=== PATIENT | male | born 1955 | race Caucasian/White ===

== ENCOUNTER 2020-05-24 05:10 | Inpatient (IN) ==
--- NOTE | 2020-05-11 09:47 | PAT Medication Instructions ---
Medication Instructions Date of Service May 11, 2020 Home Medications atorvastatin 20 mg PO QAM levothyroxine [L-Thyroxine] 50 mcg PO QAM lisinopril-hydrochlorothiazide 1 tab PO QAM meloxicam 15 mg PO QAM multivitamin 1 tab PO QPM rivaroxaban [Xarelto] 20 mg PO QAM magnesium 250 mg PO BID ASK your surgeon for instructions meloxicam 15 mg PO QAM ASK your prescriber and surgeon rivaroxaban [Xarelto] 20 mg PO QAM (in order for spinal anesthesia, rivaroxaban (Xarelto) needs to be stopped 72 hours/3 days before surgery. Please check if okay with doctor that prescribes this to you) DO NOT take the morning of surgery lisinopril-hydrochlorothiazide 1 tab PO QAM magnesium 250 mg PO BID Take morning of surgery With a small sip of water, OTHERWISE NOTHING TO EAT OR DRINK AFTER MIDNIGHT: atorvastatin 20 mg PO QAM levothyroxine [L-Thyroxine] 50 mcg PO QAM Take evening before surgery multivitamin 1 tab PO QPM magnesium 250 mg PO BID Other Notes If you have any questions please call us at [phone] or [phone] or [phone] or [phone]
--- NOTE | 2020-05-11 09:53 | PAT Medication Instructions ---
Medication Instructions Date of Service May 11, 2020 Home Medications atorvastatin 20 mg PO QAM levothyroxine [L-Thyroxine] 50 mcg PO QAM lisinopril-hydrochlorothiazide 1 tab PO QAM meloxicam 15 mg PO QAM multivitamin 1 tab PO QPM rivaroxaban [Xarelto] 20 mg PO QAM magnesium 250 mg PO BID ASK your surgeon for instructions meloxicam 15 mg PO QAM DO NOT take the morning of surgery lisinopril-hydrochlorothiazide 1 tab PO QAM magnesium 250 mg PO BID Take morning of surgery With a small sip of water, OTHERWISE NOTHING TO EAT OR DRINK AFTER MIDNIGHT: atorvastatin 20 mg PO QAM levothyroxine [L-Thyroxine] 50 mcg PO QAM Take evening before surgery multivitamin 1 tab PO QPM magnesium 250 mg PO BID Other Notes If you have any questions please call us at [phone] or [phone] or [phone] or [phone]
--- NOTE | 2020-05-12 13:10 | Anesthesiology Consultation ---
Date of Service May 12, 2020 Assessment & Plan (1) Encounter for pre-operative examination: - COVID screening: Per assessment on 05/12: Travel screen negative. no known COVID-19 positive contacts or current COVID-19 related symptoms. Patient fully vaccinated. Surgeon arranging preop COVID testing. Awaiting results. - Xarelto instructions: patient made aware that in order for spinal anesthesia, Xarelto needs to be held 72 hours/3 days prior to surgery. Patient voiced understanding/will check if okay with prescriber. Chart Review Chart Review: Acceptable Risk for Surgery (pending surgeon-ordered PCP and cardiology clearances) and Patient seen in Pre Admission Testing Teaching & Discussion Pre-Anesthesia Teaching/Discussion Notes: Instructed NPO after midnight before surgery,except medications with 15 cc of water. Medication instructions provided according to the PAT guidelines. History Surgery Operation Date: 05/24/20 10:55 Proposed Procedures p Left Total Hip Arthroplasty Uncemt Anterior(Left) - Kirill Pan DO Height/Weight Height: 6 ft Weight: 103.5 kg Allergies Allergy/AdvReac Type Severity Reaction Status Date / Time No Known Allergies Allergy Verified 04/28/20 08:29 Medications Home Medications Medication Instructions Recorded Confirmed Last Taken atorvastatin 20 mg PO QAM 02/19/20 04/28/20 Unknown levothyroxine [L-Thyroxine] 50 mcg PO QAM 02/19/20 04/28/20 Unknown lisinopril-hydrochlorothiazide 1 tab PO QAM 02/19/20 04/28/20 Unknown meloxicam 15 mg PO QAM 02/19/20 04/28/20 Unknown multivitamin 1 tab PO QPM 02/19/20 04/28/20 Unknown rivaroxaban [Xarelto] 20 mg PO QAM 02/19/20 04/28/20 Unknown magnesium 250 mg PO BID 04/28/20 04/28/20 Unknown Past Medical History Medical History Atrial fibrillation s/p cardioversion 03/2020, follows with Dr. Escobar ([place]) DVT (deep venous thrombosis) [facility] (2014)- on Xarelto History of anxiety History of pancreatitis 40+ years ago 2/2 ETOH HTN (hypertension) Hyperlipemia Hypothyroidism Osteoarthritis Temporomandibular joint click occasional clicking, no locking Exercise / Class Metabolic Activity II 4-5 Yardwork/Stairs/Walk up hill (one flight of stairs (no chest pain, rare sob)) Past Family History Family History Other No family history of adverse response to anesthesia Past Surgical History Surgical History (Updated 05/12/20 @ 16:32 by Mildred Darling) History of cardioversion 03/2020 ([facility]) History of colonoscopy History of surgery finger tendon repair History of tooth extraction History of vascular surgery LLE angioplasty Past Anesthesia History No Family Hx of Anesthesia Complications and Other (Awareness (Alert/awake) during cardioversion) History of PONV No Hx of PONV and No Hx of Motion Sickness Social History Smoking Status: Former smoker tobacco type: cigarettes Do You Dip or Chew Tobacco: No Smoking End Date: Quit 2014 Hx Alcohol Use: Yes alcohol intake frequency: holidays/special occasions only Hx Substance Use: No substance use type: does not use Review of Systems No snoring. Patient denies chest pain, shortness of breath, dyspnea on exertion, fever, chills, cough, wheezing, palpitations. Physical Exam Vital Signs VITALS BP 102/73 P 88 TEMP 99.1 SP02 98%RA RESP 16 PHYSICAL Decreased cervical extension. Full TMJ range of motion. TMD 3 finger breaths Mallampati Score 2 Dentition: missing molars Lungs: clear throughout to auscultation Cardiac: regular rate and irregular rhythm, no murmurs noted Spine: normal Carotid arteries: negative bruit Extremities: no edema Testing Laboratory Results 05/12/20 13:27 05/12/20 13:27 PT 14.6 Seconds (9.0-12.0) H 05/12/20 13:27 INR 1.5 (0.9-1.1) H 05/12/20 13:27 APTT 38.5 Seconds (21.0-31.0) H 05/12/20 13:27 Hemoglobin A1c 6.3 % (4.5-5.6) H 05/12/20 13:27 Urine Color Yellow 05/12/20 13:27 Urine Appearance Clear (Clear) 05/12/20 13:27 Urine pH 7.0 (4.5-7.5) 05/12/20 13:27 Ur Specific [place] 1.018 (1.000-1.030) 05/12/20 13:27 Urine Protein Negative (Negative) 05/12/20 13:27 Urine Glucose (UA) Negative (Negative) 05/12/20 13:27 Urine Ketones Negative (Negative) 05/12/20 13:27 Urine Nitrite Negative (Negative) 05/12/20 13:27 Ur Leukocyte Esterase Negative (Negative) 05/12/20 13:27 Blood Type A Positive 05/12/20 13:27 Antibody Screen NEGATIVE 05/12/20 13:27 Elevated coags (on Xarelto). Elevated WBC > report forwarded to PCP for continuity of care. Electrocardiogram Date: 01/12/20 A. fib at 74bpm. RBBB. Chest X-Ray Date: 11/10/19 Findings: + NAD
[2020-05-12 14:04] LABS: Basophils # (auto) 0.03 K/uL (0-0.2); Basophils % (auto) 0.2 %; Eosinophils # (auto) 0.07 K/uL (0-0.5); Eosinophils % (auto) 0.6 %; Hemoglobin 14.4 g/dL (14.0-18.0); Immature Granulocytes # (auto) 0.02 K/uL (0.00-0.02); Immature Granulocytes % (auto) 0.2 %; Lymphocytes # (auto) 2.41 K/uL (1.2-3.4); Lymphocytes % (auto) 19.2 %; Mean Corpuscular Hemoglobin 29.6 pg (25-34); Mean Corpuscular Hgb Conc 33.5 g/dL (32-36); Mean Corpuscular Volume 88.3 fL (80-100); Monocytes % (auto) 4.8 %; Neutrophils # (auto) 9.42 K/uL (1.4-6.5); Platelet Count 271 K/uL (130-400); RDW Coefficient of Variation 14.2 % (11.5-14.5); RDW Standard Deviation 46.1 fL (36.4-46.3); Red Blood Count 4.87 M/uL (4.7-6.1); White Blood Count 12.55 K/uL (4.8-10.8)
[2020-05-12 14:12] LABS: Estimated Average Glucose 134 mg/dl; Hemoglobin A1C 6.3 % (4.5-5.6)
[2020-05-12 14:13] LABS: INR 1.5 (0.9-1.1); Partial Thromboplastin Ratio 1.5; Partial Thromboplastin Time 38.5 Seconds (21.0-31.0); Prothrombin Time 14.6 Seconds (9.0-12.0)
[2020-05-12 14:16] LABS: Appearance Urine Clear (Clear); Bilirubin Urine Negative (Negative); Blood Urine Negative (Negative); Color Urine Yellow; Glucose Urine UA Negative (Negative); Ketones Urine Negative (Negative); Leukocyte Esterase Urine Negative (Negative); Nitrite Urine Negative (Negative); Protein Urine Negative (Negative); Specific Gravity Urine 1.018 (1.000-1.030); Urobilinogen Urine Negative (Negative)
[2020-05-12 15:21] LABS: Albumin Level 3.8 gm/dl (3.4-5.0); BUN Creatinine Ratio 14.8 (10-20); Calcium 8.8 mg/dl (8.5-10.1); Creatinine Clr Calc Pharmacy 97.2 ml/min; Est GFR (African American) 95.4; Est GFR (Non-African American) 82.3; Potassium 4.1 mmol/L (3.5-5.1)
--- NOTE | 2020-05-21 13:18 | History & Physical Report ---
Date of Service May 24, 2020 Assessment & Plan (1) Degenerative joint disease of left hip: I have indicated the patient for left anterior total hip replacement. The risks, benefits and complications of surgery were explained to the patient which include but not limited to infection, acute blood loss, DVT/PE, injury to nerves, vessels, bone, soft tissue, arthrofibrosis, chronic pain, failure of the prosthesis, hip dislocation, leg length discrepancy, need for additional surgery, cardiac and pulmonary events and . The patient wished to proceed with surgery and informed consent was obtained at this time. We will plan for Xarelto post-operatively for DVT prophylaxis. Upon discharge the patient will be discharged home with home health services. Appropriate clearances by PCP, cardio, vascular were obtained. History of Present Illness Chief Complaint: Left hip pain/DJD Primary Care Provider: ERYN OTERO The patient is a 64 year old male who presents with complaints of severe left hip pain and DJD. The patient has failed outpatient conservative treatments to this point which included NSAIDs, IA corticosteroid injection and HEP. The patient's pain and limited function have progressed to the point where they severely hinder their activities of daily living and they no longer tolerate exercise programs. They are requesting to proceed with total hip replacement surgery. Allergies Allergy/AdvReac Type Severity Reaction Status Date / Time No Known Allergies Allergy Verified 05/24/20 05:34 Home Medications Medication Instructions Recorded Confirmed Type atorvastatin 20 mg PO QAM 02/19/20 05/24/20 History levothyroxine [L-Thyroxine] 50 mcg PO QAM 02/19/20 05/24/20 History lisinopril-hydrochlorothiazide 1 tab PO QAM 02/19/20 05/24/20 History meloxicam 15 mg PO QAM 02/19/20 05/24/20 History multivitamin 1 tab PO QPM 02/19/20 05/24/20 History rivaroxaban [Xarelto] 20 mg PO QAM 02/19/20 05/24/20 History magnesium 250 mg PO BID 04/28/20 05/24/20 History Past Med/Surg History Medical History Atrial fibrillation s/p cardioversion 03/2020, follows with Dr. Escobar ([place]) DVT (deep venous thrombosis) [facility] (2014)- on Xarelto History of anxiety History of pancreatitis 40+ years ago 2/2 ETOH HTN (hypertension) Hyperlipemia Hypothyroidism Osteoarthritis Temporomandibular joint click occasional clicking, no locking Surgical History History of cardioversion 03/2020 ([facility]) History of colonoscopy History of surgery finger tendon repair History of tooth extraction History of vascular surgery LLE angioplasty Family History Other No family history of adverse response to anesthesia Social History Smoking Status: Former smoker Smoking End Date: Quit 2014; Second Hand Exposure: Yes ( A CHILD); Do You Dip or Chew Tobacco: No; Tobacco Cessation Education Requested by Patient: No Hx Alcohol Use: Yes Hx Substance Use: No Preferred Language: Albanian Communication Ability: Effective Switchboard Troubleshooter Required: No Beliefs That Will Affect Care: Judaism Judaism Beliefs: ZOROASTRIANISM Current Living Situation: Spouse Feels Safe at Home: Yes Safety Concerns: Feels Safe At This Time Assistive Devices: Glasses Review of Systems Review of Systems: All systems reviewed & are unremarkable except as noted in HPI & below Constitutional: as per Subjective / HPI Physical Exam Physical Exam: LLE NVSI +EHL/FHL/TA/GS SILT grossly, +2 DP pulse, compartments soft NT, limited painful ROM of the hip, antalgic gait. Constitutional: WD/WN, vitals as above Eyes: PERRL, conjunctivae normal, anicteric sclerae ENMT: external ear and nose normal, oropharynx normal Neck: trachea midline, no thyromegaly Respiratory: normal respiratory effort, lungs clear to auscultation Cardiovascular: RRR, no murmur, no edema Gastrointestinal (Abdomen): normal bowel sounds, soft, nontender, no hepatosplenomegaly Musculoskeletal: no cyanosis or clubbing, extremities motor strength 5/5 Skin: no rashes, warm and dry Neurologic: patellar DTR's 2+ bilat, sensation intact Psychiatric: A+Ox3, euthymic affect Lymphatic: no cervical or axillary lymphadenopathy Results & Data Results & Data ([facility]) Diagnostic Findings Multiple views of the hip demonstrates severe DJD with complete loss of the joint space. +osteophytes, +sclerosis, +subchondral cysts. Pre Admission Testing Addendum Laboratory Results 05/12/20 13:27 05/12/20 13:27 PT 14.6 Seconds (9.0-12.0) H 05/12/20 13:27 INR 1.5 (0.9-1.1) H 05/12/20 13:27 APTT 38.5 Seconds (21.0-31.0) H 05/12/20 13:27 Hemoglobin A1c 6.3 % (4.5-5.6) H 05/12/20 13:27 Urine Color Yellow 05/12/20 13:27 Urine Appearance Clear (Clear) 05/12/20 13:27 Urine pH 7.0 (4.5-7.5) 05/12/20 13:27 Ur Specific [place] 1.018 (1.000-1.030) 05/12/20 13:27 Urine Protein Negative (Negative) 05/12/20 13:27 Urine Glucose (UA) Negative (Negative) 05/12/20 13:27 Urine Ketones Negative (Negative) 05/12/20 13:27 Urine Nitrite Negative (Negative) 05/12/20 13:27 Ur Leukocyte Esterase Negative (Negative) 05/12/20 13:27 Blood Type A Positive 05/12/20 13:27 Antibody Screen NEGATIVE 05/12/20 13:27 05/12/20 13:27 Urine Culture - Final Urine,Clean Catch No growth - less than 1,000 colonies/mL.
[2020-05-24] MEDS ORDERED: LR 500ML BOLUS, THEN 15ML/HR IV SCH (06:00)
[2020-05-24] MEDS ORDERED: TRANEXAMIC ACID 1,000 MG **IV Pre-op IV SCH (06:00)
[2020-05-24] MEDS ORDERED: ACETAMINOPHEN 500 MG TAB PO SCH (06:00)
[2020-05-24] MEDS ORDERED: ROPIVACAINE 0.5% HCL/PF 150 MG, BUPIVACAINE 0.75% MPF 20 ML, EPINEPHrine 30MG/30ML (OR ... INSTIL SCH (06:00)
[2020-05-24] MEDS ORDERED: TRANEXAMIC ACID 1,000 MG **IV Intra-op IV SCH (06:00)
[2020-05-24] MEDS ORDERED: ceFAZolin 2000MG 2,000 MG/15 ML SYR IV SCH (06:00)
[2020-05-24] MEDS ORDERED: METOCLOPRAMIDE HCL 10 MG TABLET PO SCH (06:00)
[2020-05-24] MEDS ORDERED: FAMOTIDINE 20 MG TAB PO SCH (06:00)
[2020-05-24] MEDS ORDERED: CeleBREX 200 MG CAP PO SCH (06:00)
[2020-05-24] MEDS ORDERED: dexAMETHasone 4 MG TAB PO SCH (06:00)
[2020-05-24] MEDS ORDERED: BUPIVACAINE 0.5 % 5 MG/1 ML PF 10ML VIAL ONE (06:15)
[2020-05-24] MEDS ORDERED: ORTHO JOINT ANESTHETIC ONE (06:56)
[2020-05-24] MEDS ORDERED: BACITRACIN INJ 50,000 UNIT VIAL ONE (06:56)
[2020-05-24] MEDS ORDERED: MIDAZOLAM HCL 1 MG/ML 2ML VIAL ONE ×2 (06:59→07:32)
--- NOTE | 2020-05-24 07:03 | History & Physical Bridge Note ---
Date of Service May 24, 2020 History & Physical Bridge Note I have examined the patient, reviewed the History & Physical and in the interval since the performance of the History & Physical I have noted the following changes of clinical significance: no changes noted
[2020-05-24] MEDS ORDERED: PHENYLEPHRINE 100MCG/ML 5ML SYR IV PRN (07:18)
[2020-05-24] MEDS ORDERED: ePHEDrine sulfate 50 MG/ML AMP IV PRN (07:18)
[2020-05-24] MEDS ORDERED: ONDANSETRON INJ 2 MG/ML 2 ML VIAL IV PRN ×2 (07:18→10:35)
[2020-05-24] MEDS ORDERED: fentaNYL citrate 100 MCG/2 ML VIAL IV PRN (07:18)
[2020-05-24] MEDS ORDERED: ATROPINE SULFATE 0.1 MG/ML 10ML SYR IV PRN (07:18)
[2020-05-24] MEDS ORDERED: HYDROmorphone INJ 1 MG/ML SYRINGE IV PRN (07:18)
[2020-05-24] MEDS ORDERED: LABETALOL HCL IV 5 MG/ML 20ML IV PRN (07:18)
[2020-05-24] MEDS ORDERED: KETAMINE 50 MG/5 ML SYRINGE ONE (07:26)
[2020-05-24] MEDS ORDERED: fentaNYL citrate 100 MCG/2 ML VIAL ONE (08:07)
[2020-05-24] MEDS ORDERED: PROPOFOL IV EMULSION 10 MG/ML 20 ML VIAL IV ONE (09:02)
[2020-05-24] MEDS ORDERED: ONDANSETRON INJ 2 MG/ML 2 ML VIAL ONE (09:02)
--- NOTE | 2020-05-24 09:07 | Post Operative Brief Note ---
Immediate Post Op Note v1 Date of Surgery May 24, 2020 Pre & Post Diagnosis Operation Date: 05/24/20 07:15 Pre-Op Diagnosis: Unilateral Primary Osteoarthritis of Left Hip Post-Op Diagnosis: Unilateral Primary Osteoarthritis of Left Hip I identified the patient and participated in the time-out.: Yes Procedure Operation Date: 05/24/20 07:15 Actual Procedures p Left Anterior Total Hip Arthroplasty(Left) - Kirill Pan DO Surgeon Kirill Pan DO Range Mounter Fernando Grimm Estimated Blood Loss 175 Findings Consistent with Post-Op Diagnosis Fluids See anesthesia report Specimens Femoral head Drains Hemovac Drain Anesthesia Type MAC Spinal Regional Complications none Disposition Disposition: Recovery Room Overlapping Procedure I was present for: the critical portions of procedure. I was immediately available: during the entire case. Back up surgeon: was not required during procedure.
--- NOTE | 2020-05-24 09:09 | Operative Report ---
Post Operative Report Pre & Post Diagnosis Operation Date: 05/24/20 07:15 Pre-Op Diagnosis: Unilateral Primary Osteoarthritis of Left Hip Post-Op Diagnosis: Unilateral Primary Osteoarthritis of Left Hip I identified the patient and participated in the time-out.: Yes Procedure Operation Date: 05/24/20 07:15 Actual Procedures p Left Anterior Total Hip Arthroplasty(Left) - Kirill Pan DO Surgeon Kirill Pan DO Music Sound Light Technician Fernando Grimm Estimated Blood Loss 175 Findings Consistent with Post-Op Diagnosis Fluids See anesthesia report Specimens Femoral head Anesthesia Type Spinal MAC Complications none Disposition Disposition: Recovery Room Indications The patient is a 62-year-old man who presents with severe progressive left hip DJD who has failed outpatient conservative treatments. I indicated the patient for a anterior total hip replacement and the risks and benefits were explained in detail which include but not limited to infection, bleeding, blood clot, dam age to surrounding bone, nerves, vessels, soft tissue, hip dislocation, failure of the prosthesis, leg length discrepancy, need for additional surgery and . The patient agreed to proceed with replacement of the hip and informed consent was obtained. Appropriate clearances were obtained. Description of Procedure COMPONENTS USED: [employer] Listing Service[employer] hip system: Acetabulum size 50, femur size 10 high offset, femoral head 36+8, liner 54x36, acetabular screw 25 mm x 1. DESCRIPTION OF PROCEDURE: Following satisfactory spinal anesthesia, the patient was placed supine on the OR table. The right leg was placed in the well leg dodd and the left leg in the traction device. The left leg was prepared with ChloraPrep and draped sterilely. A surgical timeout was performed, patient identified and site malik verified. Appropriate antibiotics were given. A standard anterior approach in the interval between the sartorius and tensor muscles was performed. Dissection was carried down through subcutaneous tissues. Electrocautery was utilized for hemostasis. Circumflex femoral vessels were identified, tied and ligated. The anterior capsular fat pad was removed and the capsulotomy was performed revealing the arthritic femoral neck and head. A femoral neck cut was made with reciprocating saw and the bone fragments removed. The acetabular self-retraining retractor was placed. Acetabular reaming was completed under fluoroscopic guidance, a 54 shell was impacted into an anatomic position and secured with a acetabular screw. Local anesthetic was placed and following irrigation, the polyethylene liner was placed. The femur was placed into position of external rotation, extension and adduction. Femoral canal was prepared up to the size 10 high offset. Trial reduction with a 36+8 neck length head showed good soft tissue tension, leg lengths restored, and good fit and fill of the proximal canal using fluoroscopic landmarks. The hip was dislocated. The trial component was removed. The final implant was placed. The hip was irrigated with sterile saline solution and reduced. A Betadine soak was performed. After 3 minutes, the hip was once more irrigated with copious sterile saline solution with bacitracin. Mary-incisional soft tissue was injected utilizing [facility] [place] [employer] which includes a combination of Ropivicaine 0.5% 150mg, Bupivicaine 0.5%/Epinephrine 1:200,000 30ml, Toradol 30mg, Dexamethasone 4mg, Ketamine 10mg, Clonidine 100mcg and NSS 30ml solution. The capsule was then closed with 1-0 Vicryl interrupted figure of eight sutures. The fascia was closed with a running suture of #1 Vicryl, the subcutaneous tissues with 2-0 Vicryl and the skin with evelio and a sterile dry dressing was applied which included stanton incisional VAC. The patient tolerated the procedure well and was transported to PACU in stable condition. Due to the complex nature of the procedure, the entire surgery was performed with the operational assistance of Fernando Grimm PA-C. The assistant production editor, under direct supervision, was involved in the actual performance of all aspects of the surgical procedure including patient positioning, hemostasis, tissue retraction, instrument management and wound closure. I attest to the content of the Intraoperative Record and any orders documented therein. Any exceptions are noted below.
--- NOTE | 2020-05-24 09:14 | Fluoroscopy Report ---
FL hip LT 1V CLINICAL HISTORY: LT ANTERIOR HIP COMPARISON STUDY: None. FLUOROSCOPY TIME: 35 seconds. FLUOROSCOPIC IMAGES: 2 FINDINGS: Fluoroscopy was provided during total left hip arthroplasty. Acetabular screw is noted. No fracture is identified by fluoroscopy. Alignment appears anatomic. There are no unexpected radiopaque foreign bodies. IMPRESSION: Fluoroscopy provided during total left hip arthroplasty. ACT 112: Negative or not required by law. Electronically signed by: Curt Javier M.D. 05/24/2020 9:13 AM
--- NOTE | 2020-05-24 10:10 | XRay Report ---
SINGLE VIEW PELVIS; SINGLE VIEW LEFT HIP CLINICAL HISTORY: Postoperative examination. FINDINGS: An AP portable view of the hips and pelvis with a crosstable lateral portable view of the l eft hip are obtained. A bipolar left hip arthroplasty is in near-anatomic alignment. A single cortica l lag screw transfixes the acetabular cup. No acute fracture is identified. There are expected postop erative changes overlying the left hip including skin clips, subcutaneous gas, and soft tissue swelli ng. Moderate to advanced degenerative change is noted in the right hip. There is atherosclerotic calc ification of the femoral arteries. IMPRESSION: Expected postoperative findings status post left hip arthroplasty. No acute fracture is s een. ACT 112: Negative or not required by law. Electronically signed by: Randy Arndt M.D. 05/24/2020 10:09 AM
[2020-05-24] MEDS ORDERED: NALOXONE HCL 0.4 MG/1 ML VIAL/CARP IV PRN (10:35)
[2020-05-24] MEDS ORDERED: diphenhydrAMINE Capsule 25 MG CAP PO PRN (10:35)
[2020-05-24] MEDS ORDERED: HYDROmorphone INJ 0.5 MG/0.5 ML SYR IV PRN (10:35)
[2020-05-24] MEDS ORDERED: MAGNESIUM HYDROXIDE SUSP 30 ML UDC PO PRN (10:35)
[2020-05-24] MEDS ORDERED: bisacodyL 10 MG SUPP PR PRN (10:35)
[2020-05-24] MEDS ORDERED: METOCLOPRAMIDE HCL INJ 5 MG/ML 2 ML VIAL IV PRN (10:35)
--- NOTE | 2020-05-24 11:10 | Anesthesiology Progress Note ---
Date of Service May 24, 2020 Anesthesia Post Procedure Vital Signs Vital Signs: Temp Pulse Pulse Resp BP BP Pulse Ox 05/24/20 10:57 37.1 C 78 16 125/77 97 05/24/20 10:28 36.5 C 77 18 121/79 98 05/24/20 10:04 77 14 117/73 95 05/24/20 09:55 69 16 111/68 98 05/24/20 09:45 73 16 109/73 100 05/24/20 09:36 36.1 C L 74 16 105/72 98 05/24/20 05:40 36.9 C 86 16 130/93 97 Pain Intensity Left Hip: Pain Intensity: 0 Transfer of Care Handoff Completed per policy Notes Mental Status: alert / awake / arousable Patient Amnestic to Procedure: Yes Nausea / Vomiting: adequately controlled Pain: adequately controlled Airway Patency, RR, SpO2: stable & adequate BP & HR: stable & adequate Hydration State: stable & adequate Neuraxial Anesthesia: was administered and sensory block is resolving Anesthetic Complications: no major complications apparent and Pt Satisfied with anesthetic care
[2020-05-24] MEDS: ACETAMINOPHEN 500 MG TAB PO SCH ×2 (14:03→22:01)
[2020-05-24] MEDS: SODIUM CHLORIDE 0.9% 1000ML 1,000 ML IV SCH ×2 (14:04→23:12)
[2020-05-24] MEDS: oxyCODONE HCL IR 5 MG TAB (IMMEDIATE RELEASE) PO PRN (15:42)
[2020-05-24] MEDS: ceFAZolin 2000MG 2,000 MG/15 ML SYR IV SCH ×2 (15:43→23:12)
[2020-05-24] MEDS: DOCUSATE SODIUM 100 MG CAP PO SCH (20:28)
--- NOTE | 2020-05-24 20:36 | Orthopedic Progress Note ---
Date of Service May 24, 2020 Assessment & Plan (1) Degenerative joint disease of left hip: s/p L anterior MARIUSZ -ancef x 24 -DVT ppx: SCDs, TEDs, Xarelto -WBAT LLE -PT/OT -PO XR demonstrates a well aligned well fixed prothesis without fracture/dislocation -am labs -DC planning Admission and Anticipated Discharge Date Admission Date: May 24, 2020 Subjective Post Operative Progress Note Patient seen sitting in chair at bedside, comfortable, denies complaints, pain well controlled, no acute issues. Review of Systems Review of Systems: All systems reviewed & are unremarkable except as noted in HPI & below Constitutional: as per Subjective / HPI Physical Exam Physical Exam: LLE NVSI +EHL/FHL/TA/GS SILT grossly, +2 DP pulse, compartments soft NT, dressing cdi. Constitutional: WD/WN, vitals as above Results & Data ([place]) Vital Signs (Past 12 Hours) Vital Signs Temp Pulse Pulse Pulse Pulse Resp BP 05/24/20 19:30 36.9 C 88 16 120/81 05/24/20 15:53 36.5 C 80 16 05/24/20 13:32 36.7 C 81 18 109/70 05/24/20 12:40 82 16 05/24/20 11:20 36.8 C 82 16 05/24/20 10:57 37.1 C 78 16 05/24/20 10:28 36.5 C 77 18 05/24/20 10:04 77 14 05/24/20 09:55 69 16 05/24/20 09:45 73 16 05/24/20 09:36 36.1 C L 74 16 BP Pulse Ox 05/24/20 19:30 98 05/24/20 15:53 125/82 98 05/24/20 13:32 99 05/24/20 12:40 125/68 97 05/24/20 11:20 114/80 99 05/24/20 10:57 125/77 97 05/24/20 10:28 121/79 98 05/24/20 10:04 117/73 95 05/24/20 09:55 111/68 98 05/24/20 09:45 109/73 100 05/24/20 09:36 105/72 98
[2020-05-24] MEDS ORDERED: SENNA 8.6 MG TAB PO SCH (21:00)
[2020-05-25] MEDS: oxyCODONE HCL IR 5 MG TAB (IMMEDIATE RELEASE) PO PRN ×3 (01:21→11:33)
[2020-05-25] MEDS: ACETAMINOPHEN 500 MG TAB PO SCH (05:33)
[2020-05-25] MEDS ORDERED: LEVOTHYROXINE SODIUM 50 MCG TABLET PO SCH (06:30)
[2020-05-25 06:37] LABS: Basophils # (auto) 0.01 K/uL (0-0.2); Basophils % (auto) 0.1 %; Eosinophils # (auto) 0.01 K/uL (0-0.5); Eosinophils % (auto) 0.1 %; Hematocrit (blood only) 36.4 % (42-52); Hemoglobin 12.5 g/dL (14.0-18.0); Immature Granulocytes # (auto) 0.03 K/uL (0.00-0.02); Immature Granulocytes % (auto) 0.2 %; Lymphocytes # (auto) 0.98 K/uL (1.2-3.4); Lymphocytes % (auto) 6.5 %; Mean Corpuscular Hemoglobin 29.7 pg (25-34); Mean Corpuscular Hgb Conc 34.3 g/dL (32-36); Mean Corpuscular Volume 86.5 fL (80-100); Mean Platelet Volume 10.1 fL (7.4-10.4); Monocytes # (auto) 0.97 K/uL (0.11-0.59); Monocytes % (auto) 6.4 %; Neutrophils % (auto) 86.7 %; Platelet Count 239 K/uL (130-400); RDW Coefficient of Variation 13.9 % (11.5-14.5); RDW Standard Deviation 44.3 fL (36.4-46.3); Red Blood Count 4.21 M/uL (4.7-6.1)
[2020-05-25 07:08] LABS: BUN Creatinine Ratio 18.2 (10-20); Calcium 8.5 mg/dl (8.5-10.1); Creatinine Clr Calc Pharmacy 106.3 ml/min; Est GFR (African American) 105.7; Est GFR (Non-African American) 91.2; Potassium 4.3 mmol/L (3.5-5.1)
[2020-05-25] MEDS: DOCUSATE SODIUM 100 MG CAP PO SCH (08:34)
[2020-05-25] MEDS ORDERED: LISINOPRIL/HCTZ 20/12.5MG 1 TAB TAB PO SCH (09:00)
[2020-05-25] MEDS ORDERED: ATORVASTATIN 20 MG TAB PO SCH (09:00)
[2020-05-25] MEDS ORDERED: MULTIVITAMIN TAB PO SCH (09:00)
[2020-05-25] MEDS ORDERED: RIVAROXABAN 20 MG TAB PO SCH (09:00)
--- NOTE | 2020-05-25 09:01 | Orthopedic Progress Note ---
Date of Service May 25, 2020 Assessment & Plan (1) Degenerative joint disease of left hip: s/p L anterior MARIUSZ POD#1 -ancef x 24 -DVT ppx: SCDs, TEDs, Xarelto -WBAT LLE -PT/OT -PO XR demonstrates a well aligned well fixed prothesis without fracture/dislocation -am labs - as above, hgb 12.5 -DC planning - home with Admission and Anticipated Discharge Date Admission Date: May 24, 2020 Subjective Post Operative Progress Note Patient seen sitting in bed, comfortable, denies complaints, pain well controlled, no acute issues. Denies F/C/N/V/SOB/CP. Review of Systems Review of Systems: All systems reviewed & are unremarkable except as noted in HPI & below Constitutional: as per Subjective / HPI Physical Exam Physical Exam: LLE NVSI +EHL/FHL/TA/GS SILT grossly, +2 DP pulse, compartments soft NT, dressing cdi. Constitutional: WD/WN, vitals as above Results & Data ([facility]) Vital Signs (Past 12 Hours) Vital Signs Temp Pulse Pulse Resp BP Pulse Ox 05/25/20 08:00 37.0 C 89 16 140/91 95 05/25/20 02:56 37.0 C 84 16 108/74 98 05/24/20 22:09 36.9 C 89 18 118/78 96 Laboratory Results 05/25/20 05/25/20 05/24/20 Range/Units 05:56 05:56 06:04 WBC 15.10 H (4.8-10.8) K/uL RBC 4.21 L (4.7-6.1) M/uL Hgb 12.5 L (14.0-18.0) g/dL Hct 36.4 L (42-52) % MCV 86.5 (80-100) fL MCH 29.7 (25-34) pg MCHC 34.3 (32-36) g/dL RDW Std Deviation 44.3 (36.4-46.3) fL RDW Coeff of Mary 13.9 (11.5-14.5) % Plt Count 239 (130-400) K/uL MPV 10.1 (7.4-10.4) fL Immature Gran % (Auto) 0.2 % Neut % (Auto) 86.7 % Lymph % (Auto) 6.5 % [place] % (Auto) 6.4 % Eos % (Auto) 0.1 % Baso % (Auto) 0.1 % Neut # (Auto) 13.10 H (1.4-6.5) K/uL Lymph # (Auto) 0.98 L (1.2-3.4) K/uL [place] # (Auto) 0.97 H (0.11-0.59) K/uL Eos # (Auto) 0.01 (0-0.5) K/uL Baso # (Auto) 0.01 (0-0.2) K/uL Immature Gran # (Auto) 0.03 H (0.00-0.02) K/uL Sodium 139 (136-145) mmol/L Potassium 4.3 (3.5-5.1) mmol/L Chloride 106 (98-107) mmol/L Carbon Dioxide 29 (21-32) mmol/L Anion Gap 4.0 (3-11) BUN 16 (7-18) mg/dl Creatinine 0.90 (0.6-1.4) mg/dl Est Cr Clr Drug Dosing 106.3 ml/min Est GFR ( Amer) 105.7 Est GFR (Non-Af Amer) 91.2 BUN/Creatinine Ratio 18.2 (10-20) Glucose 114 H (70-99) mg/dl Calcium 8.5 (8.5-10.1) mg/dl Hepatitis C Ab Screen Neg (Neg)
--- NOTE | 2020-05-25 21:35 | Discharge Summary ---
Date of Service May 25, 2020 Admission HPI Per Admitting Provider The patient is a 64 year old male who presents with complaints of severe left hip pain and DJD. The patient has failed outpatient conservative treatments to this point which included NSAIDs, IA corticosteroid injection and HEP. The patient's pain and limited function have progressed to the point where they severely hinder their activities of daily living and they no longer tolerate exercise programs. They are requesting to proceed with total hip replacement surgery. Principal Diagnosis Left anterior total hip replacement Discharge Exam LLE NVSI +EHL/FHL/TA/GS SILT grossly, +2 DP pulse, compartments soft NT, dressing cdi. Constitutional WD/WN, vitals as above Discharge Data Allergies Allergy/AdvReac Type Severity Reaction Status Date / Time No Known Allergies Allergy Verified 05/24/20 05:34 Procedures Performed Operation Date: 05/24/20 07:15 Actual Procedures p Left Anterior Total Hip Arthroplasty(Left) - Kirill Pan DO Ordered Studies 05/24/20 07:15 FL fluoroscopy <1hr Routine FL hip LT 1V Routine Hospital Course (1) Degenerative joint disease of left hip: The patient is a 64 -year-old male who presents with long standing history of severe left hip DJD and failed outpatient conservative treatments. The patient's symptoms have progressed to the point where it has been difficult to perform even normal activities of daily living. I indicated the patient for a left anterior total hip arthroplasty, the risks, benefits and complications of the procedure include but not limited to infection, bleeding, damage to bone, nerves, vessels, surrounding soft tissue, may develop blood clots, loss of function, leg length discrepancy, dislocation, failure of the components, loosening of the components, the need for additional surgery and . The patient wished to proceed with surgery at this time and informed consent was obtained. Hospital Course: On 05/24/20 the patient was taken to the operating room, adequate anesthesia administered and underwent a left anterior total hip arthroplasty. The patient tolerated the procedure well and was taken to the PACU in stable condition. Post-operatively the patient was started on a DVT ppx medication and given appropriate IV antibiotics. Consults were placed to physical therapy, occupational therapy and case management. On POD#1, the patient did well overnight and their pain was well controlled. Labs were drawn and the Hgb was 12.5. The patient progressed well with PT. Dressings were changed at this time and the incision was clean, dry and intact. The patients hospital stay was relatively uneventful and they were deemed stable by the orthopedic team and consultants to be discharged home with HH on 05/25/20. Discharge Instructions: Upon discharge the patient may weight bear as tolerates through their operative extremity. They were instructed to keep the incision clean and dry at all times. The patient may shower but should not submerge the incision, avoid bathing, pools and hot tubs. The patient was given a script for pain medication and should take as instructed. The patient instructed to continue their home medication Xarelto and should take as directed. The patient was instructed to not drive or travel for long distances until cleared to do so. If the patient develops any symptoms of fevers, chills, nausea, vomiting, increased redness, swelling, pain or drainage from the surgical site, they should notify the office and/or proceed to the nearest emergency room. The patient should follow up in 10-14 days after surgery for their routine post-operative follow-up appointment and should call the office, to confirm the date and time. s/p L anterior MARIUSZ POD#1 -ancef x 24 -DVT ppx: SCDs, TEDs, Xarelto -WBAT LLE -PT/OT -PO XR demonstrates a well aligned well fixed prothesis without fracture/dislocation -am labs - as above, hgb 12.5 -DC planning - home with Total Time Total Time Spent Total Time Spent (In Minutes): 30 Discharge Plan Discharge Items Patient Disposition: Home - Home Health Services Reason For Visit: Unilateral Primary Osteoarthritis of Left Hip Discharge Diagnosis: Left anterior total hip replacement Condition on Discharge: Good Activity: Per Instructions section Lifting: Wait until after follow-up appointment Bathing: Keep incision dry Bathing Comment: No bathing, pools or hot tubs. Sexual Activity: Wait until after follow-up appointment Exercise/Sports: Wait until after follow-up appointment Driving/Machine Use: No driving. Weightbearing: Full weightbearing Non-emergency contact: Primary Care Provider and Surgeon Call non-emergency contact if: you have any medication questions, your symptoms worsen, your pain is not controlled, your pain is worsening, your pain is unusual for you, your pain is concerning for you, you have a fever, your temperature is above 101, your wound has increased redness, your wound has increased drainage and your wound pain has increased Follow-up/Referrals: Av Salguero MD [Primary Care Provider] - Diet: Regular Addtl Attending Provider Instructions: ACTIVITY RECOMMENDATIONS: SELF CARE INSTRUCTIONS AFTER TOTAL HIP REPLACEMENT : Direct Anterior Approach Until the incision and soft tissues around your hip have healed, there is a possibility that the hip prosthesis could dislocate. A. Hip flexion ( Up & Down out of chair or steps ) may be difficult. This is normal. B. Numbness in front of the thigh is also normal for a few weeks. C. Use hand rails when walking on stairs. D. Wear low heeled shoes with non-slip soles. E. Be sure that your floors are free of things that could trip you - throw rugs, electrical cords, small objects. Avoid wet and waxed floors, especially with crutches and canes. F. Try to walk several times a day with rest periods between. G. Continue with all the exercises taught to you in the hospital. Again, make walking a part of your daily routine. SPECIAL CARE INSTRUCTIONS: VERY IMPORTANT TO READ AND REVIEW A. You may still be at risk for phlebitis and blood clots. 1. Wear surgical stockings (KELLEN hose) for 2 weeks after surgery to improve circulation and reduce swelling. 2. Take your home medication Xarelto as directed by your doctor. This is your blood thinner. 3. High risk patients may be prescribed a stronger blood thinner if necessary. 4. If you are on Coumadin normally, your family doctor/lead based paint technician should monitor your blood work. Expect a phone call the day of or the day after bloodwork is drawn to adjust your dosage. B. You must take antibiotics before having dental work, bladder, bowel and other surgery. Your doctor will provide you with a permanent card to carry d escribing precautions. C. Call [facility] if you have a fever, redness or swelling around the incision, cloudy drainage from incision, or sudden increase in pain in your hip, not relieved by your regular pain medication. D. Please call the office at if you have any concerns or qu estions about your operation or recovery. * YOU MAY SHOWER, NO TUB BATHS UNTIL CLEARED BY YOUR DOCTOR. - Keep an extra close eye on the top portion of your incision. Be sure to keep clean & dry. * WEAR KELLEN HOSE 20 HOURS PER DAY FOR 2 WEEKS. * YOU MAY PROGRESS FROM A WALKER, TO A CANE, TO INDEPENDENT AT YOUR OWN PACE. * MOST PATIENTS WILL HAVE HOME NURSING FOR THERAPY. IF YOU DECIDE TO DO OUTPATIENT PHYSICAL THERAPY, PLEASE SCHEDULE THIS 3 TIMES PER WEEK. *YUNG incisional vac is a special dressing covering your incision. This dressing provides a sterile dry environment while you are healing. The dressing is to be left in place for 7 days post-operatively. Your home nurse or surgeon will remove. If you develop any redness or blisters or have any questions notify your surgeon immediately. FOLLOW UP VISIT: If appointment is not already scheduled: Please call [facility] to make a follow-up appointment for 2 weeks after your surgery at . Pending Studies at Discharge: No Stand-Alone Forms: My [facility] [employer], Smoking Cessation Medications and DC Order Prescriptions: New acetaminophen 500 mg Tablet 1,000 mg PO Q8 PRN (Reason: pain/fevers) Qty: 90 RF: 0 oxycodone 5 mg Tablet 5 mg PO Q6H MDD 4 PRN (Reason: pain) Qty: 30 RF: 0 sennosides [Senokot] 8.6 mg Tablet 17.2 mg PO HS PRN (Reason: constipation) Qty: 30 RF: 0 Continued multivitamin Tablet 1 tab PO QPM RF: 0 atorvastatin 20 mg Tablet 20 mg PO QAM RF: 0 lisinopril-hydrochlorothiazide 20-12.5 mg Tablet 1 tab PO QAM RF: 0 levothyroxine 50 mcg Tablet 50 mcg PO QAM RF: 0 Xarelto 20 mg Tablet 20 mg PO QAM RF: 0 magnesium 250 mg Tablet 250 mg PO BID RF: 0 Discontinued meloxicam 15 mg Tablet 15 mg PO QAM RF: 0 Discharge Orders: Discharge Order (Routine); Ordered 05/25/20 Ordered By: Fernando Cuevas/Other Patient Handouts: Managing Post-Op Pain at Home Admission Data Admit Date/Time: 05/24/20 09:45 Attending Provider: Kirill Pan Admit Provider: Kirill Pan Primary Care Provider: Av Salguero Other Interventions: Discharge Summary Assessment (RN) Last Done: 05/25/20 14:05
== END 2020-05-25 15:18 | disposition home health service (06) | DRG 470 ==
LOC: 3E 05:10 → ASU 05:10 → OBSVTOIN 09:45